=== PATIENT | female | born 1990 | race African-American/Black ===

== ENCOUNTER → 2016-05-23 | Outpatient (CLI) | payer OTHER ==
[~2016-05-23] MED LIST: PAIN RELIEF EX500 MG PO
--- NOTE | ~2016-05-23 | EKG ---
PATIENT: ETELVINA ALLEN UNIT #: [id number] Ventricular Rate: 91 BPM Atrial Rate: 91 BPM P-R Interval: 190 ms QRS Duration: 86 ms Q-T Interval: 378 ms QTC Calculation(Bezet): 464 ms P Lampe: 30 degrees Calculated R Lampe: 21 degrees Calculated T Lampe: 18 degrees Diagnosis Line: Normal sinus rhythm Diagnosis Line: Normal ECG Diagnosis Line: No previous ECGs available Diagnosis Line: Confirmed by ULIS PARIS MD ([id number]) on Diagnosis Line: 05/25/2016 11:59:00 PM INTERPRETING MD: WELLINGTON ROSALES
--- NOTE | ~2016-05-23 | CR97 ---
[facility] A Service of [facility] RADIOLOGY TEXT RESULTS PATIENT: ETELVINA ALLEN V LOCATION: [facility] : 92 UNIT #: [id number] AGE: [address]: Milton Seals III, MD SEX: F ORDER DR: [id number] [facility]. [place], [place] [address] [id number] O MR#: [id number] Acc #: [id number] NAME: ETELVINA ALLEN V. : 1990 SEX: F STUDY DATE/TIME: 05/23/2016 9:43 UNIT: [facility] ROOM: STUDY DESCRIPTION: CR Esophagram Attending Physician: Milton Seals III, M.D. Referring Physician: Milton Seals III, M.D. Ordering Physician: Milton Seals III, M.D. Primary Care Physician: Jarvis Goff M.D. MEDICAL IMAGING REPORT This report is preliminary unless electronic signature is present EXAM Fluoroscopic esophagram 05/23/2016 COMPARISON None. HISTORY 26-year-old female with dyspnea with activity and morbid obesity. Preoperative evaluation prior the gastric Lap-Band surgery. FINDINGS Total fluoro time was 0.4 minutes. A total of 74 images were obtained. Imaging of the esophagus was performed at 3 frames per second in the left posterior oblique position after oral administration of barium. The exam is slightly limited due to under penetration. This is related to patient body habitus. No evidence of extrinsic mass effect on the esophagus. No convincing evidence of esophageal mucosal lesion. No stricture. There may be minimal tertiary contractions at the distal esophagus. Peristaltic activity is otherwise normal in the esophagus. No evidence of hiatal hernia. No gastroesophageal reflux is seen. IMPRESSION 1. Questionable minimal tertiary contractions of the distal esophagus of uncertain clinical significance. 2. No evidence of hiatal hernia or gastroesophageal reflux. Dictated by... [facility] A Service of [facility] RADIOLOGY TEXT RESULTS PATIENT: ETELVINA ALLEN V LOCATION: [facility] : 92 UNIT #: [id number] AGE: [address]: Milton Seals III, MD SEX: F ORDER DR: Rashard Negrete M.D. THIS IS AN ELECTRONICALLY VERIFIED REPORT Rashard Negrete M.D. at 05/25/2016 7:14 PM FELIPE/debo TD: 05/23/2016 18:11 JOB #: [id number] MEDICAL IMAGING REPORT COPY
--- NOTE | ~2016-05-23 | CR63 ---
[facility] A Service of [facility] RADIOLOGY TEXT RESULTS PATIENT: ETELVINA ALLEN V LOCATION: [facility] : 92 UNIT #: [id number] AGE: [address]: Milton Seals III, MD SEX: F ORDER DR: [id number] [facility] [address] [facility]. [place], [place] [address] [id number] O MR#: [id number] Acc #: [id number] NAME: ETELVINA ALLEN V. : 1990 SEX: F STUDY DATE/TIME: 05/23/2016 8:26 UNIT: [facility] ROOM: STUDY DESCRIPTION: CR Chest 2 View Attending Physician: Milton Seals III, M.D. Referring Physician: Milton Seals III, M.D. Ordering Physician: Milton Seals III, M.D. Primary Care Physician: Jarvis Goff M.D. MEDICAL IMAGING REPORT This report is preliminary unless electronic signature is present EXAM PA and lateral chest. INDICATION 26-year-old female preop for lap-band surgery. COMPARISON STUDIES No comparisons. FINDINGS The lungs are well expanded and clear. The heart size is normal. The visualized osseous structures are unremarkable. IMPRESSION Negative chest. Dictated by... Azeem Jones M.D. THIS IS AN ELECTRONICALLY VERIFIED REPORT Azeem Jones M.D. at 05/23/2016 5:05 PM DENI/velasquez TD: 05/23/2016 11:28 JOB #: [id number] MEDICAL IMAGING REPORT COPY
[2016-05-23 09:37] LABS: HEMATOCRIT 34.9 % (35.0-45.0); HEMOGLOBIN 11.4 gm/dL (12.0-16.0); MEAN CELL VOLUME 87.5 FL (83-96); MEAN CORPUSCULAR HEMOGLOBIN 28.5 PG (28-34); MEAN CORPUSCULAR HGB CONC 32.6 g/dL (30-36); MEAN PLATELET VOLUME 8.9 FL (6.5-11.5); RED BLOOD COUNT 3.99 X10e (3.90-5.30); RED CELL DISTRIBUTION WIDTH 16.7 % (11.0-15.5); WHITE BLOOD COUNT 7.9 X10e3 (4.0-10.5)
[2016-05-23 10:50] LABS: ALBUMIN SERUM 3.3 g/dL (3.5-5.0); ALKALINE PHOSPHATASE 69 U/L (32-92); ALT (SGPT) 14 U/L (10-40); AST (SGOT) 16 U/L (10-42); BLOOD UREA NITROGEN 10 mg/dL (9-23); BUN/CREATININE RATIO 16.66; CARBON DIOXIDE 24 mmol/L (22-31); CHLORIDE 104 mmol/L (100-111); CHOLESTEROL 152 mg/dL (0-200); CREATININE SERUM 0.6 mg/dL (0.6-1.4); GLOM FILT RATE Estimated ABOVE60 mL/min (>60); GLUCOSE FASTING 91 mg/dL (70-110); HDL CHOLESTEROL 49 mg/dL (35-95); LDL CHOLESTEROL 90 mg/dL (-130); LDL/HDL RATIO 2 RATIO (0-4); POTASSIUM 4.2 mmol/L (3.5-5.1); PROTEIN TOTAL SERUM 7.9 g/dL (6.0-8.3); SODIUM 135 mmol/L (135-145); TRIGLYCERIDES 66 mg/dL (10-160)
[2016-05-23 10:53] LABS: BILIRUBIN,TOTAL <0.1 mg/dL (0.2-2.0)
== END | disposition home or self-care (01) ==
LOC: CRAD 08:12
PROVIDERS: Surgery
DX: Z01.818 Encounter for other preprocedural examination (principal); E66.01 Morbid (severe) obesity due to excess calories; R06.09 Other forms of dyspnea
CPT/HCPCS: 36415; 71020; 74220; 80053; 80061; 84443; 85027; 93005

== ENCOUNTER → 2016-06-04 | Day surgery (SDC) | payer OTHER ==
--- NOTE | ~2016-06-04 | OR ---
Unit #: [id number] #: [id number] Patient: ETELVINA ALLEN V [id number] [facility] [address] [facility]. [place], [place] [address] [id number] O MR#: [id number] NAME: ETELVINA ALLEN ROOM: Date of Procedure: 06/04/2016 Admission Date: 06/04/2016 Surgeon: Milton Seals III, M.D. : 1990 Attending Physician: Milton Seals III, M.D. Primary Care Physician: Evan Goff OPERATIVE REPORT PREOPERATIVE DIAGNOSIS Chronic morbid obesity. POSTOPERATIVE DIAGNOSIS Chronic morbid obesity. PROCEDURE PERFORMED Laparoscopic adjustable gastric banding (AP standard with regular port). SYSTEM ANALYST Jose Macario M.D. SPECIMEN None. COMPLICATIONS None apparent. ESTIMATED BLOOD LOSS Minimal. INDICATIONS FOR PROCEDURE This is a 26-year-old lady, who has chronic morbid obesity with a BMI of 54. She has been through the bariatric program at [facility] and understands risks and benefits of the procedure. DESCRIPTION OF PROCEDURE After consent was obtained, including the risks and benefits of slippage, erosion, port dysfunction, and possible failure of weight loss due to noncompliance, the patient was taken to the operating room and placed in the supine position. General anesthetic was administered and the abdomen was prepped and draped in standard surgical fashion. I began by making a 2 cm incision just above and to the left of the umbilicus. I used a Visiport to enter the peritoneal cavity without any difficulty. C02 pneumoperitoneum was then established. Next, I placed a 5 mm port in the right upper quadrant, a 5 mm Nir liver retractor in the subxiphoid region to provide exposure of the gastroesophageal junction. Next, a 10 mm port was placed in the left upper quadrant and a 5 mm port was placed in the left lateral subcostal region. I began by performing an examination of the GE junction to evaluate for a hiatal hernia. We then scored the peritoneal attachments overlying the angle of Unit #: [id number] #: [id number] Patient: ETELVINA ALLEN V His. I then opened up the clear space in the gastrohepatic ligament, and then using 2 blunt graspers, I identified the small fat pad crossing over the right crura. I swept the fat anterior to the crura off the crura and using the pars flaccida, I created a retrogastric tunnel where the blunt grasper exited at the angle of His. Once I had made this tunnel safely, I then inserted an Allergan AP band into the abdominal cavity. This adjustable gastric band was then place around the upper part of the stomach and fastened and buckled anteriorly. We then tacked the lateral fundus over the band to the proximal pouch with 2 interrupted 0 Ethibond sutures. I then used a third stitch to imbricate the excess anterior stomach by going from the lesser curvature up towards where the last stitch was placed. We then had excellent hemostasis. I removed the Nir liver retractor. We then removed the port tubing through the initial port incision. The rest of the ports were removed, and the pneumoperitoneum was released. I then left a small tail on the tubing. We then attached the port to the excess band tubing. We placed a piece of Prolene mesh along the back side of the port and used a Prolene stitch to anchor this mesh in place. We then trimmed the excess mesh so that just a small footprint of mesh was in place behind the port. I then inserted the tubing back into the abdominal cavity, and we placed the port into a small pocket that was made just inferior to where our initial port incision was made. The mesh was in direct contact with the fascia, and this will scar in place to hold the port in place. We then injected all the port sites with 0.25% plain Marcaine, and I reapproximated the skin edges with interrupted 4-0 Vicryl subcuticular sutures. Steri-strips were then applied. The patient tolerated the procedure without any problems and returned to the recovery room in stable condition. Dictated by... Milton Seals III, M.D. VCL/chasidy TD: 06/06/2016 02:12 JOB #: [id number] OPERATIVE REPORT Page 1 of 1 X Milton Seals III, MD PROCEDURE OPERATIVE NOTE
--- NOTE | ~2016-06-04 | CR7 ---
[facility] A Service of [facility] RADIOLOGY TEXT RESULTS PATIENT: ETELVINA ALLEN V [id number] [birth year] UNIT #: [id number] AGE: [address]: Milton Seals III, MD SEX: F ORDER DR: [id number] [facility] [address] [place], [place] [address] [id number] O MR#: [id number] Acc #: [id number] NAME: ETELVINA ALLEN V. : 1990 SEX: F STUDY DATE/TIME: 06/04/2016 10:55 UNIT: [facility] ROOM: STUDY DESCRIPTION: CR Abdomen Single AP View Attending Physician: Milton Seals III, M.D. Ordering Physician: Milton Seals III, M.D. Primary Care Physician: Jarvis Goff M.D. MEDICAL IMAGING REPORT This report is preliminary unless electronic signature is present EXAM KUB HISTORY Post Lap-Band surgery. TECHNIQUE A single AP view of the abdomen was obtained. FINDINGS Postoperative changes of Lap-Band surgery are noted. The angle of the band with respect to the long axis of the spine is 71 degrees. No kinking or disruption of the catheter is noted. IMPRESSION Satisfactory postoperative appearance. STAT * RESULT Dictated by... Chandana Smith M.D. THIS IS AN ELECTRONICALLY VERIFIED REPORT Chandana Smith M.D. at 06/05/2016 10:45 AM CELINA/daquan TD: 06/04/2016 11:24 JOB #: [id number] MEDICAL IMAGING REPORT [facility] A Service of [facility] RADIOLOGY TEXT RESULTS PATIENT: ETELVINA ALLEN V [facility] [id number] : [birth year] UNIT #: [id number] AGE: [address]: Milton Seals III, MD SEX: F ORDER DR: Page 1 of 1 COPY
== END | disposition home or self-care (01) ==
LOC: CSUR 07:02
DX: E66.01 Morbid (severe) obesity due to excess calories (principal); Z68.43 Body mass index [BMI] 50.0-59.9, adult; Z83.3 Family history of diabetes mellitus; Z82.49 Family history of ischemic heart disease and other diseases of the circulatory system
CPT/HCPCS: 74000; 84703; C1781; J0330; J0690; J1650; J1885; J2250; J2405; J2710; J3010